=== PATIENT | female | born 1945 | race Caucasian/White ===

== ENCOUNTER 2016-06-23 14:57 | Outpatient (CLI) | payer OTHER, MEDICARE ==
[~2016-06-23 14:57] MED LIST: ASPIRIN ADULT L81 M1 PO; CHLORTHALIDONE25 MG PO; CITALOPRAM HYDR20 MG PO; LISINOPRIL10 MG PO; OXYBUTYNIN CHLOR5 MG PO; POTASSIUM CHLO10 ME2 PO; RANITIDINE HCL150 MG PO
--- NOTE | 2016-06-23 17:04 | DIAGNOSTIC IMAGING REPORT ---
PROCEDURE: MG BILATERAL SCREENING W/CAD INDICATION: SCREENING TECHNIQUE: Bilateral CC and MLO digital views. COMPARISON: Compared to 05/23/2015, 04/24/2014, and 03/22/2013. FINDINGS: Computer-aided detection applied. Mildly dense with scattered dystrophic calcifications. No change. IMPRESSION: 1. Negative mammogram. RESULT CODE: 1- Negative. A. A negative report should not delay biopsy if a dominant or clinically suspicious mass is present. 10-15% of cancers are not identified by x-ray. B. A negative report may reinforce clinical impression. C. Adenosis and dense breasts may obscure an underlying neoplasm. D. False positive reports average 6-10%. E.. A yearly screening mammogram is recommended. A reminder letter will be scheduled.
== END 2016-06-23 23:00 ==
LOC: MAM SRH 14:57
DX: Z12.31 Encounter for screening mammogram for malignant neoplasm of breast (principal)